=== PATIENT | female | born 1970 | race Caucasian/White ===

== ENCOUNTER → 2024-07-04 11:20 | Outpatient (BNVA) | payer SELFPAY | PROVIDERS: Visit Provider Nurse Practitioner Family | DX: R35.0 Frequency of micturition (principal); Z90.49 Acquired absence of other specified parts of digestive tract; R10.9 Unspecified abdominal pain | CPT/HCPCS: 74018; 80053; 81000; 85025 ==

== ENCOUNTER → 2025-07-24 11:00 | Outpatient (BNVA) | payer MEDICAID, SELFPAY | PROVIDERS: Visit Provider Nurse Practitioner Family | DX: G25.81 Restless legs syndrome (principal); F32.A Depression, unspecified; T78.40XA Allergy, unspecified, initial encounter; K21.9 Gastro-esophageal reflux disease without esophagitis; R60.0 Localized edema; M79.7 Fibromyalgia; E55.9 Vitamin D deficiency, unspecified; Z13.6 Encounter for screening for cardiovascular disorders; E04.1 Nontoxic single thyroid nodule; Z76.89 Persons encountering health services in other specified circumstances; F17.200 Nicotine dependence, unspecified, uncomplicated; X58.XXXA Exposure to other specified factors, initial encounter | CPT/HCPCS: 80053; 80061; 82652; 84443; 84480; 85025 ==

== ENCOUNTER 2025-08-08 10:16 | Outpatient (CLI) | payer MEDICAID, SELFPAY ==
--- NOTE | 2025-08-08 10:30 | USR_ITS ---
PROCEDURE INFORMATION: Exam: US Soft Tissue Head and Neck, Thyroid Exam date and time: 08/08/2025 10:32 AM Age: 55 years old Clinical indication: Condition or disease; Thyroid disorder; Other: Nontoxic single thyroid nodule; Additional info: E04.1 - nontoxic single thyroid nodule TECHNIQUE: Imaging protocol: Real-time ultrasound scan of the neck with image documentation. Exam focused on the thyroid. COMPARISON: No relevant prior studies available. FINDINGS: The right lobe measures 4.9 x 1.5 x 1.4 cm. The left lobe measures 4.7 x 1.4 x 1.5 cm. The isthmus is 4 mm in thickness. There is a 7 x 6 x 5 mm heterogeneous nodule in the upper pole of the right lobe with some acoustic shadowing and internal hyperechogenicity probably due to coarse calcification. TR 2 benign. In the midpole of the right lobe is a homogeneous slightly hypoechoic oval mass measuring 13 x 10 x 6 mm. TR 4 moderately suspicious. Follow-up in 1 year is recommended based on TI-RADS recommendations. In the upper pole of the left lobe is a 2.0 x 1.7 x 1.0 cm complex nodule with mostly cystic with some solid components. TR 3 mildly suspicious. Remainder of the thyroid is normal. US/US thyroid [id number] IMPRESSION: Benign nodule in the right lobe. Follow-up left lobe nodules in 6-12 months.
== END 2025-08-08 10:17 | disposition home or self-care (01) ==
LOC: RAD 10:17
PROVIDERS: Visit Provider Nurse Practitioner Family
DX: E04.1 Nontoxic single thyroid nodule (principal)
CPT/HCPCS: 76536

== ENCOUNTER → 2025-08-28 13:45 | Outpatient (BNVA) | payer MEDICAID, SELFPAY | PROVIDERS: PCP Nurse Practitioner Family; Visit Provider Nurse Practitioner Family | DX: G89.29 Other chronic pain (principal); R53.83 Other fatigue | CPT/HCPCS: 85651; 86140 ==